=== PATIENT | female | born 2000 | race Caucasian/White ===

== ENCOUNTER 2022-08-27 10:28 | Emergency (ER) | payer SELFPAY ==
[2022-08-27 10:36] VITALS: BP 127/79; PULSE 83; RESP 16; TEMP 36.9; O2SAT 99; BMI 38.3
[2022-08-27 11:49] LABS: Basophils % 0.2 %; Eosinophils % 0.1 %; Hematocrit 40.2 % (37.0-47.0); Hemoglobin 13.1 g/dL (11.5-15.3); Lymphocytes # 1.5 10^3/uL (1.5-6.5); Lymphocytes % 11.2 %; Mean Corpuscular HGB Conc 32.6 g/dL (30.0-36.0); Mean Corpuscular Volume 92.2 fl (81-99); Monocytes # 0.6 10^3/uL (0.2-0.9); Monocytes % 4.4 %; Neutrophils # 11.09 10^3/uL (1.8-8.0); Neutrophils % 83.7 %; Nucleated Red Blood Cells % 0 %; Platelet Count 322 10^3/cmm (130-400); Red Blood Count 4.36 10^6/uL (4.1-5.3); Red Cell Distribution Width 12.7 % (12.1-15.1); White Blood Count 13.3 10^3/uL (4.5-13.0)
--- NOTE | 2022-08-27 12:24 | W.ED.ABDPA2 ---
HPI - Abdominal Pain General: Chief Complaint: Abdominal Pain Stated Complaint: cramping, blood in stool, 9 weeks Time Seen by Provider: 08/27/22 10:32 Source: patient Mode of arrival: ambulatory Limitations: no limitations History of Present Illness: Patient is a 21-year-old female at approximately 9 weeks here for complaints of some bright red blood that she noticed in her stool and with wiping earlier today. She's only had one bloody stool and quantified bleeding as a total of 4ml. Patient states she has a longstanding history of a known hiatal hernia. She states she normally takes Prilosec as well as [id number] antacids. She states she will occasionally have pain and did earlier today but denies pain currently. Patient states when she noticed the bright red blood she got concerned that possibly it was secondary to her hiatal hernia and then became concerned in regards to her . Patient is followed by an OB provider out of town. She states she had an ultrasound at roughly 7 weeks which showed a live IUP with activity. Patient has not noticed any constipation or straining with bowel movements. No history of hemorrhoids. She is not having any rectal pain or fullness. Denies urinary symptoms. Patient is not having any vaginal bleeding or pelvic cramping. MD elicited complaint: other (rectal bleeding) Onset (ago): hour(s) Pain Consistency: intermittent Severity: mild Radiation: none Migration to: no migration Exacerbating factors: nothing Relieving factors: nothing Associated Symptoms: Reports hematochezia; Denies change in bowel habits, chills, diarrhea, dysuria, fever(s), melena, nausea and vomiting Related Data: Patient : Yes Review of Systems Const: Denies: fever(s), chills, body aches, fatigue or malaise Card: Denies: chest pain Resp: Denies: dyspnea GI: Reports: abdominal pain (none currently) and hematochezia; Denies: nausea, vomiting, diarrhea, change in bowel habits, pain on defecation, rectal pain, rectal itching, melena or white/light colored stool : Denies: flank pain, dysuria, vaginal odor, vaginal bleeding, vaginal discharge or pelvic pain Musc: Denies: neck pain, back pain, extremity pain or joint pain Neuro: Denies: headache(s), numbness in extremities, weakness in extremities, sensory changes or dizziness Physical Exam Const: COMMON NORMALS: no acute distress, patient oriented x3, no limitations, alert and well nourished GENERAL APPEARANCE: cooperative NUTRITIONAL APPEARANCE: obese ORIENTATION/CONSCIOUSNESS: Yes awake, Yes oriented to person, Yes oriented to place and Yes oriented to time Resp: COMMON NORMALS: normal respiratory effort and clear to auscultation bilaterally AUSCULTATION: clear to auscultation bilaterally Cardio: COMMON NORMALS: regular rate and regular rhythm RATE: regular rate RHYTHM: regular rhythm GI: COMMON NORMALS: Normal to inspection, nondistended, normoactive bowel sounds present, Soft to palpation, non-tender, No hepatosplenomegaly present and no masses INSPECTION: Yes normal to inspection AUSCULTATION: Yes normoactive bowel sounds PALPATION: Yes Soft to palpation, No Tenderness to palpation present (GI) and Yes No hepatosplenomegaly present RECTAL EXAM: visual inspection normal, no fissure noted and no hemorrhoids noted : COMMON NORMALS: Yes no CVA tenderness BLADDER/KIDNEY EXAM: Yes no CVA tenderness Back/Pelvis: COMMON NORMALS: no CVA tenderness Extremity: COMMON NORMALS: normal to inspection GENERAL: Yes normal exam except as noted Neuro: GENNA COMA SCALE: document GCS findings [place] coma scale eye opening: Spontaneous [place] coma scale verbal response: Orientated [place] coma scale motor response: Obey commands [place] coma scale total score: 15 COMMON NORMALS: patient oriented x3, moves all extremities, no focal motor deficits and no sensory deficits noted SENSORIUM/ORIENTATION: Yes alert, Yes oriented to person, Yes oriented to place and Yes oriented to time Skin: COMMON NORMALS: no rashes or lesions noted GENERAL SKIN EXAM: no rashes or lesions noted Course Vital Signs: Vital signs: Vital Signs Temperature 98.4 F 08/27/22 10:36 Pulse Rate 70 08/27/22 13:12 Respiratory Rate 15 08/27/22 13:12 Blood Pressure 118/71 08/27/22 13:13 Pulse Oximetry 99 08/27/22 13:12 Oxygen Delivery Me thod Room Air 08/27/22 13:12 MDM - Abdominal Pain Medical Decision Making Patient here with complaints of one episode of bright red blood per rectum during/after a bowel movement. She had some upper abdominal pain earlier today that has resolved upon arrival to the ED. She states she has this occasionally secondary to her known hiatal hernia/GERD. She states she does normally take medications for this although has not taken them in several days. On exam her abdomen is nontender. Blood work overall is unremarkable. She is not having any vaginal bleeding or cramping. hCG is consistent with dates. There is no need for ultrasound imaging at this time. Discussed keeping stool soft/avoid straining. If bleeding persists I would like her to follow-up with her primary care provider. She can follow-up with OB as scheduled. Return ED precautions given. Lab Data 08/27/22 11:20 08/27/22 11:20 Labs/Radiology: Laboratory Results WBC 13.3 10^3/uL (4.5-13.0) H 08/27/22 11:20 RBC 4.36 10^6/uL (4.1-5.3) 08/27/22 11:20 Hgb 13.1 g/dL (11.5-15.3) 08/27/22 11:20 Hct 40.2 % (37.0-47.0) 08/27/22 11:20 MCV 92.2 fl (81-99) 08/27/22 11:20 MCH 30.0 pg (28.0-34.0) 08/27/22 11:20 MCHC 32.6 g/dL (30.0-36.0) 08/27/22 11:20 RDW 12.7 % (12.1-15.1) 08/27/22 11:20 Plt Count 322 10^3/cmm (130-400) 08/27/22 11:20 MPV 9.0 fL (7.4-10.4) 08/27/22 11:20 Neut % (Auto) 83.7 % 08/27/22 11:20 Lymph % (Auto) 11.2 % 08/27/22 11:20 [place] % (Auto) 4.4 % 08/27/22 11:20 Eos % (Auto) 0.1 % 08/27/22 11:20 Baso % (Auto) 0.2 % 08/27/22 11:20 Neut # (Auto) 11.09 10^3/uL (1.8-8.0) H 08/27/22 11:20 Lymph # (Auto) 1.5 10^3/uL (1.5-6.5) 08/27/22 11:20 [place] # (Auto) 0.6 10^3/uL (0.2-0.9) 08/27/22 11:20 Eos # (Auto) 0.0 10^3/uL (0.0-0.8) 08/27/22 11:20 Baso # (Auto) 0.0 10^3/uL (0.0-0.1) 08/27/22 11:20 Nucleated RBC % (auto) 0 % 08/27/22 11:20 Nucleated RBCs # 0.0 /100WBC 08/27/22 11:20 Sodium 136 mmol/L (136-145) 08/27/22 11:20 Potassium 4.1 mmol/L (3.5-5.1) 08/27/22 11:20 Chloride 102 mmol/L (98-107) 08/27/22 11:20 Carbon Dioxide 21 mmol/L (22-29) L 08/27/22 11:20 Anion Gap 17.1 (5-19) 08/27/22 11:20 BUN 8 mg/dL (6-20) 08/27/22 11:20 Creatinine 0.5 mg/dL (0.5-0.9) 08/27/22 11:20 GFR Calculation 158.9 mL/min (90-130) H 08/27/22 11:20 Glucose 94 mg/dL (65-115) 08/27/22 11:20 Calculated Osmolality 280 mOsm/kg (285-295) L 08/27/22 11:20 Calcium 9.7 mg/dL (8.5-10.5) 08/27/22 11:20 Total Bilirubin 0.2 mg/dL (0.15-1.2) 08/27/22 11:20 AST 13 U/L (0-32) 08/27/22 11:20 ALT 7 U/L (0-33) 08/27/22 11:20 Alkaline Phosphatase 67 U/L (35-105) 08/27/22 11:20 Total Protein 7.7 g/dL (6.6-8.7) 08/27/22 11:20 Albumin 4.0 g/dL (3.5-5.2) 08/27/22 11:20 Globulin 3.7 g/dL (1.3-4.6) 08/27/22 11:20 Ser , Semi-Qnt 26180.00 mIU/mL 08/27/22 11:20 Urine Color Yellow (Yellow) 08/27/22 12:40 Urine Appearance Cloudy (CLEAR) A 08/27/22 12:40 Urine pH 5 (5-7) 08/27/22 12:40 Ur Specific [place] 1.030 (1.005-1.030) 08/27/22 12:40 Urine Protein Neg (Negative) 08/27/22 12:40 Urine Glucose (UA) Norm (Normal) 08/27/22 12:40 Urine Ketones 2+ (Negative) H 08/27/22 12:40 Urine Blood Neg (Negative) 08/27/22 12:40 Urine Nitrate Negative (Negative) 08/27/22 12:40 Urine Bilirubin Neg (Negative) 08/27/22 12:40 Urine Urobilinogen Norm mg/dL (Negative) 08/27/22 12:40 Ur Leukocyte Esterase Trace (Negative) H 08/27/22 12:40 Urine RBC 0-4 /hpf (0-2) H 08/27/22 12:40 Urine WBC 0-4 /hpf (0-5) H 08/27/22 12:40 Ur Squamous Epith Cells 5-10 /hpf (0-5) H 08/27/22 12:40 Amorphous Sediment 3+ /hpf 08/27/22 12:40 Urine Bacteria Trace /hpf (NONE) 08/27/22 12:40 Urine Mucus 1+ /hpf 08/27/22 12:40 Discharge Plan Discharge Patient Disposition: Home Clinical Impression: Bright red blood per rectum, History of hiatal hernia Qualifiers: Weeks of gestation: 9 weeks Qualified Code(s): Z3A.09 - 9 weeks gestation of Condition: Stable Discharge Orders: Discharge ED (Routine); Ordered 08/27/22 Ordered By: Nhi Coulter Activity Restrictions/Additional Instructions: As we discussed you may begin taking a stool softener or MiraLAX to help keep stools soft. Monitor for continued bright red blood from your rectum/stools. You need to follow-up with primary care if this continues. You need to return to the emergency department for severe rectal bleeding or severe pain. Please follow-up with your OB provider as scheduled. Coding Level of Care Code ED Chemical Process Engineer for Gilberto Dawson
[2022-08-27 12:28] LABS: Alanine Aminotransferase 7 U/L (0-33); Alkaline Phosphatase 67 U/L (35-105); Anion Gap 17.1 (5-19); Aspartate Amino Transferase 13 U/L (0-32); Blood Urea Nitrogen 8 mg/dL (6-20); Calcium 9.7 mg/dL (8.5-10.5); Carbon Dioxide 21 mmol/L (22-29); Chloride 102 mmol/L (98-107); Globulin 3.7 g/dL (1.3-4.6); Glomerular Filtration Rate 158.9 mL/min (90-130); Glucose 94 mg/dL (65-115); Osmolality Calculated 280 mOsm/kg (285-295); Potassium 4.1 mmol/L (3.5-5.1); Sodium 136 mmol/L (136-145); Total Bilirubin 0.2 mg/dL (0.15-1.2); Total Protein 7.7 g/dL (6.6-8.7)
[2022-08-27 13:06] LABS: Add Urine Microscopic? YES; Bilirubin Urine Neg (Negative); Blood Urine Neg (Negative); Glucose Urine UA Norm (Normal); Ketones Urine 2+ (Negative); Leukocyte Esterase Urine Trace (Negative); Nitrate Urine Negative (Negative); Protein Urine Neg (Negative); Urine Appearance Cloudy (CLEAR); Urine Color Yellow (Yellow); Urobilinogen Urine Norm (Negative); pH Urine 5 (5-7)
[2022-08-27 13:07] LABS: Add Urine Culture? No; Amorphous Sediment Urine 3+ /hpf; Bacteria Urine TRACE /hpf; Mucus Urine 1+ /hpf; RBC Urine 0-4 /hpf (0-2); WBC Urine 0-4 /hpf (0-5)
[2022-08-27 13:12] VITALS: PULSE 70; RESP 15; O2SAT 99
[2022-08-27 13:13] VITALS: BP 118/71
[2022-08-27 13:40] VITALS: BP 108/78; PULSE 65; O2SAT 99
--- NOTE | 2022-08-30 12:12 | DCPLANNER ---
aerospace project manager called patient due to no primary care physician - no answer at this time.
== END 2022-08-27 13:42 | disposition home or self-care (01) ==
PROVIDERS: Emergency Provider Physician Assistant
DX: O99.611 Diseases of the digestive system complicating pregnancy, first trimester (principal); K92.1 Melena; Z3A.09 9 weeks gestation of pregnancy; K44.9 Diaphragmatic hernia without obstruction or gangrene
CPT/HCPCS: 36415; 80053; 81001; 84702; 85025; 99283

== ENCOUNTER 2022-10-22 01:28 | Emergency (ER) | payer SELFPAY ==
[2022-10-22 01:29] VITALS: BP 91/56; PULSE 93; RESP 16; TEMP 36.7; O2SAT 100; BMI 37.3
--- NOTE | 2022-10-22 01:33 | XRR_ITS ---
PROCEDURE INFORMATION: Exam: XR Chest Exam date and time: 10/22/2022 1:47 AM Age: 22 years old Clinical indication: Shortness of breath; TECHNIQUE: Imaging protocol: Radiologic exam of the chest. Views: 1 view. COMPARISON: No relevant prior studies available. FINDINGS: Lungs: Unremarkable. No consolidation. Pleural spaces: Unremarkable. No pleural effusion. No pneumothorax. Heart/Mediastinum: Unremarkable. No cardiomegaly. Bones/joints: Unremarkable. XR/XR chest 1V portable [id number] IMPRESSION: No acute findings.
--- NOTE | 2022-10-22 01:35 | ED_ITS ---
HPI - Abdominal Pain General: Chief Complaint: Abdominal Pain Stated Complaint: , abd pain Time Seen by Provider: 10/22/22 01:30 Source: patient and EMS Mode of arrival: EMS Limitations: no limitations History of Present Illness: 22-year-old female who is 16 weeks states that 2 hours ago she started having epigastric abdominal pain. She states the pain left upper quadrant and epigastric. She has had gastritis past. She has had obstipation as well at this . She states she did take a stool softener right before the pain started. She denies any lower abdominal pain fevers denies any vaginal bleeding. Associated Symptoms: Denies chills, diarrhea, fever(s), nausea and vomiting Related Data: Date of Last Menstrual Period: 06/17/22 Review of Systems Const: Denies: fever(s), chills, body aches or change in appetite Eyes: Denies: blurry vision or eye discomfort ENMT: Denies: throat pain or dental pain Card: Denies: chest pain Resp: Denies: dyspnea GI: Denies: abdominal pain, nausea, vomiting or diarrhea Musc: Denies: neck pain or back pain Skin/Breast: Denies: rash Neuro: Denies: headache(s) [facility], [facility] ED Female Reproductive History: Date of last menstrual period: 06/17/22 Physical Exam Const: COMMON NORMALS: no acute distress, patient oriented x3 and healthy appearing HENMT: COMMON NORMALS: normocephalic and atraumatic HEAD & SCALP: normocephalic and atraumatic Eye: COMMON NORMALS: EOMs intact bilaterally Neck/C-Spine: COMMON NORMALS: full ROM and supple Chest: COMMONS NORMALS: normal inspection of the chest and normal palpation of entire chest wall Resp: COMMON NORMALS: normal respiratory effort, No retractions, No use of accessory muscles and clear to auscultation bilaterally AUSCULTATION: clear to auscultation bilaterally Cardio: COMMON NORMALS: regular rate, regular rhythm and No murmurs present (Cardio) RATE: regular rate RHYTHM: regular rhythm GI: COMMON NORMALS: Normal to inspection, nondistended, normoactive bowel sounds present, Soft to palpation, non-tender and no masses PALPATION: Yes Soft to palpation Extremity: COMMON NORMALS: normal to inspection and full ROM Neuro: COMMON NORMALS: patient oriented x3, moves all extremities and no focal motor deficits Psych: COMMON NORMALS: mental status grossly normal, Normal thought process present and cooperative THOUGHT PROCESS: Normal thought process present Skin: COMMON NORMALS: no rashes or lesions noted and no wounds GENERAL SKIN EXAM: no rashes or lesions noted Course Vital Signs: Vital signs: Vital Signs Temperature 98.1 F 10/22/22 01:29 Pulse Rate 76 10/22/22 01:54 Respiratory Rate 16 10/22/22 01:54 Blood Pressure 103/70 10/22/22 01:54 Pulse Oximetry 98 10/22/22 01:54 Oxygen Delivery Me thod Room Air 10/22/22 01:29 MDM - Abdominal Pain Medical Decision Making Patient presents here with abdominal pain epigastric in nature likely reflux her pain is much improved here. Blood work is normal. She has no lower abdominal pain heart tones are normal she is stable for discharge she follows up with her OB on Friday she is return if worsening. Medical Records I reviewed the patient's medical records. Lab Data I reviewed the patient's lab results. 10/22/22 01:42 10/22/22 01:42 Labs/Radiology: Radiology Impressions Chest X-Ray 10/22/22 01:33 IMPRESSION: No acute findings. Laboratory Results WBC 12.5 10^3/uL (4.5-13.0) 10/22/22 01:42 RBC 3.91 10^6/uL (4.1-5.3) L 10/22/22 01:42 Hgb 11.8 g/dL (11.5-15.3) 10/22/22 01:42 Hct 35.0 % (37.0-47.0) L 10/22/22 01:42 MCV 89.5 fl (81-99) 10/22/22 01:42 MCH 30.2 pg (28.0-34.0) 10/22/22 01:42 MCHC 33.7 g/dL (30.0-36.0) 10/22/22 01:42 RDW 13.1 % (12.1-15.1) 10/22/22 01:42 Plt Count 258 10^3/cmm (130-400) 10/22/22 01:42 MPV 8.9 fL (7.4-10.4) 10/22/22 01:42 Neut % (Auto) 70.0 % 10/22/22 01:42 Lymph % (Auto) 21.8 % 10/22/22 01:42 [place] % (Auto) 6.3 % 10/22/22 01:42 Eos % (Auto) 1.2 % 10/22/22 01:42 Baso % (Auto) 0.3 % 10/22/22 01:42 Neut # (Auto) 8.73 10^3/uL (1.8-8.0) H 10/22/22 01:42 Lymph # (Auto) 2.7 10^3/uL (1.5-6.5) 10/22/22 01:42 [place] # (Auto) 0.8 10^3/uL (0.2-0.9) 10/22/22 01:42 Eos # (Auto) 0.2 10^3/uL (0.0-0.8) 10/22/22 01:42 Baso # (Auto) 0.0 10^3/uL (0.0-0.1) 10/22/22 01:42 Nucleated RBC % (auto) 0 % 10/22/22 01:42 Nucleated RBCs # 0.0 /100WBC 10/22/22 01:42 Sodium 137 mmol/L (136-145) 10/22/22 01:42 Potassium 3.8 mmol/L (3.5-5.1) 10/22/22 01:42 Chloride 104 mmol/L (98-107) 10/22/22 01:42 Carbon Dioxide 22 mmol/L (22-29) 10/22/22 01:42 Anion Gap 14.8 (5-19) 10/22/22 01:42 BUN 8 mg/dL (6-20) 10/22/22 01:42 Creatinine 0.6 mg/dL (0.5-0.9) 10/22/22 01:42 GFR Calculation 127.5 mL/min (90-130) 10/22/22 01:42 Glucose 97 mg/dL (65-115) 10/22/22 01:42 Calculated Osmolality 282 mOsm/kg (285-295) L 10/22/22 01:42 Calcium 9.3 mg/dL (8.5-10.5) 10/22/22 01:42 Total Bilirubin 0.2 mg/dL (0.15-1.2) 10/22/22 01:42 AST 12 U/L (0-32) 10/22/22 01:42 ALT < 5 U/L (0-33) 10/22/22 01:42 Alkaline Phosphatase 54 U/L (35-105) 10/22/22 01:42 Total Protein 7.2 g/dL (6.6-8.7) 10/22/22 01:42 Albumin 3.9 g/dL (3.5-5.2) 10/22/22 01:42 Globulin 3.3 g/dL (1.3-4.6) 10/22/22 01:42 Lipase 22 U/L (13-60) 10/22/22 01:42 Urine Color Light yellow (Yellow) 10/22/22 01:59 Urine Appearance Hazy (CLEAR) A 10/22/22 01:59 Urine pH 6 (5-7) 10/22/22 01:59 Ur Specific [place] 1.020 (1.005-1.030) 10/22/22 01:59 Urine Protein Neg (Negative) 10/22/22 01:59 Urine Glucose (UA) Norm (Normal) 10/22/22 01:59 Urine Ketones 2+ (Negative) H 10/22/22 01:59 Urine Blood Neg (Negative) 10/22/22 01:59 Urine Nitrate Negative (Negative) 10/22/22 01:59 Urine Bilirubin Neg (Negative) 10/22/22 01:59 Urine Urobilinogen Norm mg/dL (Negative) 10/22/22 01:59 Ur Leukocyte Esterase 2+ (Negative) H 10/22/22 01:59 Urine RBC None /hpf (0-2) 10/22/22 01:59 Urine WBC 5-10 /hpf (0-5) H 10/22/22 01:59 Ur Squamous Epith Cells 10-15 /hpf (0-5) H 10/22/22 01:59 Amorphous Sediment Not Reportable 10/22/22 01:59 Urine Bacteria 1+ /hpf (NONE) H 10/22/22 01:59 Discharge Plan Discharge Patient Disposition: Home Clinical Impression: UTI (urinary tract infection), Abdominal pain Condition: Stable Prescriptions: New cephalexin 500 mg capsule 500 mg PO TID 7 Days Qty: 21 0RF No Action ondansetron 8 mg tablet,disintegrating Vitamin Plus Low Iron 27 mg iron- 1 mg tablet Discharge Orders: Discharge ED (Routine); Ordered 10/22/22 Ordered By: Merle Henry Discharge Diet: Advance as tolerated Discharge Activity: Resume usual activity Patient Instructions: Abdominal Pain (ED), Urinary Tract Infection in (ED) Coding Level of Care Code ED Sexton Helper for Gilberto Dawson
[2022-10-22] MEDS: ondansetron 2 mg/ML SDV 2 mL 4 MG IVP (01:49)
[2022-10-22] MEDS: aluminum-mag hydrox-simethicon 30 ML, sucralfate oral liq 1 GM PO (01:49)
[2022-10-22 01:50] VITALS: RESP 16
[2022-10-22] MEDS: morphine 4 mg/mL SDV 1 mL IVP (01:50)
[2022-10-22 01:54] VITALS: BP 103/70; PULSE 76; RESP 16; O2SAT 98
[2022-10-22 01:55] LABS: Basophils % 0.3 %; Eosinophils # 0.2 10^3/uL (0.0-0.8); Eosinophils % 1.2 %; Hemoglobin 11.8 g/dL (11.5-15.3); Lymphocytes # 2.7 10^3/uL (1.5-6.5); Lymphocytes % 21.8 %; Mean Corpuscular HGB Conc 33.7 g/dL (30.0-36.0); Mean Corpuscular Hemoglobin 30.2 pg (28.0-34.0); Mean Corpuscular Volume 89.5 fl (81-99); Mean Platelet Volume 8.9 fL (7.4-10.4); Monocytes # 0.8 10^3/uL (0.2-0.9); Monocytes % 6.3 %; Neutrophils # 8.73 10^3/uL (1.8-8.0); Nucleated Red Blood Cells % 0 %; Platelet Count 258 10^3/cmm (130-400); Red Blood Count 3.91 10^6/uL (4.1-5.3); Red Cell Distribution Width 13.1 % (12.1-15.1); White Blood Count 12.5 10^3/uL (4.5-13.0)
[2022-10-22 02:20] LABS: Add Urine Microscopic? YES; Bilirubin Urine Neg (Negative); Blood Urine Neg (Negative); Glucose Urine UA Norm (Normal); Ketones Urine 2+ (Negative); Leukocyte Esterase Urine 2+ (Negative); Nitrate Urine Negative (Negative); Protein Urine Neg (Negative); Urine Appearance Hazy (CLEAR); Urine Color Light yellow (Yellow); Urobilinogen Urine Norm (Negative); pH Urine 6 (5-7)
[2022-10-22 02:21] LABS: Add Urine Culture? No; Bacteria Urine 1+ /hpf
[2022-10-22 02:29] LABS: Alanine Aminotransferase < 5 U/L (0-33); Albumin Level 3.9 g/dL (3.5-5.2); Alkaline Phosphatase 54 U/L (35-105); Anion Gap 14.8 (5-19); Aspartate Amino Transferase 12 U/L (0-32); Blood Urea Nitrogen 8 mg/dL (6-20); Calcium 9.3 mg/dL (8.5-10.5); Carbon Dioxide 22 mmol/L (22-29); Chloride 104 mmol/L (98-107); Globulin 3.3 g/dL (1.3-4.6); Glomerular Filtration Rate 127.5 mL/min (90-130); Glucose 97 mg/dL (65-115); Lipase 22 U/L (13-60); Osmolality Calculated 282 mOsm/kg (285-295); Potassium 3.8 mmol/L (3.5-5.1); Sodium 137 mmol/L (136-145); Total Bilirubin 0.2 mg/dL (0.15-1.2); Total Protein 7.2 g/dL (6.6-8.7)
[2022-10-22 02:40] VITALS: BP 105/66; PULSE 72; RESP 16; O2SAT 98
[2022-10-22] MEDS: cephALEXin 500 mg Capsule PO (02:41)
== END 2022-10-22 02:46 | disposition home or self-care (01) ==
PROVIDERS: Emergency Provider Emergency Medicine
DX: O23.42 Unspecified infection of urinary tract in pregnancy, second trimester (principal); N39.0 Urinary tract infection, site not specified; Z3A.16 16 weeks gestation of pregnancy
CPT/HCPCS: 71045; 80053; 81001; 83690; 85025; 96374; 96375; 99284; J2270; J2405

== ENCOUNTER 2022-11-30 18:51 | Outpatient (CLI) | payer MEDICAID, SELFPAY ==
[2022-11-30] VITALS (8 sets, daily range): BP systolic 102–121; BP diastolic 56–73; PULSE 80–97; RESP 16; TEMP 35.9; BMI 38.3
[2022-11-30 19:49] LABS: Bilirubin Urine Neg (Negative); Blood Urine Neg (Negative); Glucose Urine UA Norm (Normal); Ketones Urine Negative (Negative); Leukocyte Esterase Urine Negative (Negative); Nitrate Urine Negative (Negative); Protein Urine Neg (Negative); Urine Appearance Clear (CLEAR); Urine Color Yellow (Yellow); Urobilinogen Urine Neg (Negative); pH Urine 7 (5-7)
[2022-11-30 20:19] LABS: RBC Urine RARE /hpf (0-2)
[2022-11-30 20:20] LABS: Add Urine Culture? No; Amorphous Sediment Urine 2+ /hpf; Squamous Epithelial Cell Urine 15-25 /hpf (0-5)
== END 2022-11-30 20:30 | disposition home or self-care (01) ==
LOC: OPOB 18:55 → OBGYN 18:55
PROVIDERS: Visit Provider Family Medicine
DX: O26.899 Other specified pregnancy related conditions, unspecified trimester (principal); Z3A.00 Weeks of gestation of pregnancy not specified; R10.9 Unspecified abdominal pain
CPT/HCPCS: 81001; 99211

== ENCOUNTER 2023-01-12 13:31 | Outpatient (CLI) | payer MEDICAID, SELFPAY ==
[2023-01-12 13:23] VITALS: BMI 39.9
[2023-01-12 13:49] VITALS: BP 111/66; PULSE 102
[2023-01-12 14:07] VITALS: BP 115/71; PULSE 98
[2023-01-12 14:15] LABS: Nitrazine Paper, PH Negative
== END 2023-01-12 14:13 | disposition home or self-care (01) ==
LOC: OPOB 13:32 → OBGYN 13:33
PROVIDERS: Visit Provider Family Medicine
DX: O26.899 Other specified pregnancy related conditions, unspecified trimester (principal); Z3A.00 Weeks of gestation of pregnancy not specified; N89.8 Other specified noninflammatory disorders of vagina
CPT/HCPCS: 59025; 83986; 99211

== ENCOUNTER 2023-01-22 07:22 | Outpatient (CLI) | payer MEDICAID, SELFPAY ==
[2023-01-22 07:34] VITALS: RESP 16
[2023-01-22 07:37] VITALS: BP 113/73; PULSE 73
[2023-01-22 07:42] VITALS: BMI 40.4
[2023-01-22 07:52] VITALS: BP 103/64; PULSE 74
[2023-01-22 08:07] VITALS: BP 101/62; PULSE 73
== END 2023-01-22 08:12 | disposition home or self-care (01) ==
LOC: OPOB 07:23 → OBGYN 07:24
PROVIDERS: Visit Provider Family Medicine
DX: O26.899 Other specified pregnancy related conditions, unspecified trimester (principal); Z3A.00 Weeks of gestation of pregnancy not specified; R10.9 Unspecified abdominal pain
CPT/HCPCS: 59025; 99211

== ENCOUNTER 2023-02-02 19:10 | Outpatient (CLI) | payer MEDICAID, SELFPAY ==
[2023-02-02] VITALS (9 sets, daily range): BP systolic 101–107; BP diastolic 63–76; PULSE 85–100; RESP 17; TEMP 35.8; BMI 40.4
[2023-02-02 20:26] LABS: Bacteria Urine 1+ /hpf; Bilirubin Urine Neg (Negative); Blood Urine 3+ (Negative); Glucose Urine UA 1+ (Normal); Ketones Urine 1+ (Negative); Leukocyte Esterase Urine 2+ (Negative); Nitrate Urine Positive (Negative); Protein Urine 1+ (Negative); RBC Urine >100 /hpf (0-2); Specific Gravity, Urine 1.025 (1.005-1.030); Urine Appearance Cloudy (CLEAR); Urine Color Yellow (Yellow); Urobilinogen Urine Neg (Negative); WBC Urine >100 /hpf (0-5); pH Urine 5 (5-7)
[2023-02-02 20:27] LABS: Add Urine Culture? No; Squamous Epithelial Cell Urine TOO NUMEROUS TO CNT /hpf (0-5)
== END 2023-02-02 21:00 | disposition home or self-care (01) ==
LOC: OPOB 19:12 → OBGYN 19:12
PROVIDERS: Visit Provider Family Medicine
DX: O46.90 Antepartum hemorrhage, unspecified, unspecified trimester (principal); Z3A.00 Weeks of gestation of pregnancy not specified; R10.9 Unspecified abdominal pain
CPT/HCPCS: 59025; 81001; 99211

== ENCOUNTER 2023-03-24 08:20 | Outpatient (CLI) | payer MEDICAID, SELFPAY ==
[2023-03-24] VITALS (8 sets, daily range): BP systolic 98–110; BP diastolic 59–69; PULSE 68–79; RESP 16; BMI 42.2
== END 2023-03-24 11:25 | disposition home or self-care (01) ==
LOC: OPOB 08:20 → OBGYN 08:39
PROVIDERS: PCP Family Medicine; Visit Provider Family Medicine
DX: O26.899 Other specified pregnancy related conditions, unspecified trimester (principal); Z3A.00 Weeks of gestation of pregnancy not specified; R10.9 Unspecified abdominal pain
CPT/HCPCS: 59025; 99211

== ENCOUNTER 2023-03-25 01:12 | Outpatient (CLI) | payer MEDICAID, SELFPAY ==
[2023-03-25 01:12] VITALS: BMI 42.8
[2023-03-25 01:19] VITALS: BP 116/73; PULSE 95
[2023-03-25 01:34] VITALS: BP 115/65; PULSE 79
[2023-03-25 01:49] VITALS: BP 112/68; PULSE 70
[2023-03-25 02:09] VITALS: BP 112/68; PULSE 70; RESP 15; TEMP 36.6
== END 2023-03-25 02:10 | disposition home or self-care (01) ==
LOC: OPOB 01:12 → OBGYN 01:13
PROVIDERS: PCP Family Medicine; Visit Provider Family Medicine
DX: O26.899 Other specified pregnancy related conditions, unspecified trimester (principal); Z3A.00 Weeks of gestation of pregnancy not specified; R10.9 Unspecified abdominal pain
CPT/HCPCS: 59025; 99211

== ENCOUNTER 2023-03-26 01:46 | Inpatient (IN) | payer MEDICAID, SELFPAY ==
[2023-03-25 23:13] VITALS: BMI 42.4
[2023-03-25 23:25] VITALS: BP 140/80; PULSE 99
[2023-03-25 23:37] VITALS: RESP 15
[2023-03-26] VITALS (74 sets, daily range): BP systolic 93–183; BP diastolic 53–132; PULSE 58–214; RESP 14–18; TEMP 35.9–37.3; O2SAT 89–99
[2023-03-26 02:12] LABS: Basophils % 0.3 %; Eosinophils # 0.1 10^3/uL (0.0-0.8); Eosinophils % 0.4 %; Hematocrit 37.3 % (36-47); Lymphocytes # 2.4 10^3/uL (1.5-6.5); Lymphocytes % 21.7 %; Mean Corpuscular HGB Conc 33.8 g/dL (30-55); Mean Corpuscular Hemoglobin 30.8 pg (27-33); Mean Corpuscular Volume 91.2 fl (85-98); Mean Platelet Volume 9.7 fL (7.4-10.4); Monocytes # 0.8 10^3/uL (0.2-0.9); Neutrophils % 70.2 %; Nucleated Red Blood Cells % 0 %; Platelet Count 237 10^3/cmm (157-399); Red Blood Count 4.09 10^6/uL (3.85-5.65); Red Cell Distribution Width 13.2 % (12.1-15.1); White Blood Count 11.12 10^3/uL (4.5-13.0)
[2023-03-26] MEDS: fentaNYL 50 mcg/mL INJ 2mL IVP (03:19)
[2023-03-26] MEDS: lactated ringers 1,000 ML 999 ML IV ×2 (03:30→04:29)
[2023-03-26] MEDS: ondansetron 2 mg/ML SDV 2 mL 4 MG IVP (03:45)
--- NOTE | 2023-03-26 04:36 | ANES.PROC ---
Anesthesia Procedures Procedure/Date: 03/26/23 Epidural: Time Out Performed: Yes Consents Signed: Procedure Consent Consent: requested by attending/covering physician, from patient, risks and benefits reviewed and patient agrees to proceed Lumbar Level: L3-L4 Epidural position: sitting Epidural procedure: sterile prep of area, 1% lidocaine to numb the area, 18 g needle, neg for paresthesia, test dose given, 1.5% xylocaine 1:200k epi (4cc), 0.2% Ropivacaine bolus ml (4cc and fentanyl 100mcg), placed PCEA, no systemic response, sterile dressing applied, L.U.D. no apparent complications and 0.2% Ropiavacaine @ mls/hr (10cc/hour) Additional Comments: ERICA at 7cm. cath placed 2cm into epidural space. Pt tolerated well
[2023-03-26] MEDS: ROPivacaine syringe 100 MG/50 ML SYRINGE 10 MG EPIDURAL (04:47)
[2023-03-26] MEDS: dextrose 5%-lactated ringers 1,000 ML 125 ML IV (05:29)
[2023-03-26] MEDS: calcium carbonate 500 mg Chew Tablet 1000 MG PO (07:36)
[2023-03-26] MEDS: oxytocin 30 UNIT/500 ML BAG 600 UNIT IV (08:05)
--- NOTE | 2023-03-26 08:26 | PM.OPHPUD ---
Labor & Delivery H&P Update Date of Procedure: March 26, 2023 Date H&P Performed: 03/20/23 Admission Diagnosis: IUP at 39 weeks 2 days gestation in active labor Planned procedure: Expectant management of labor and delivery
--- NOTE | 2023-03-26 08:29 | PM.DELIVERY ---
Delivery Note: Date of delivery: March 26, 2023 Procedure: Normal spontaneous vaginal delivery Delivering Physician: Kristen Coleman MD Estimated blood loss (mL): 200 Pre-Delivery Course: The patient had routine care at [facility]. Her blood type was a positive antibody negative, hepatitis B nonreactive, hepatitis C nonreactive, HIV nonreactive, rubella immune, GC chlamydia negative, RPR nonreactive, UDS negative, Q low risk, she passed her glucose tolerance test, she was GBS negative. There were no complications during the . Delivery: This is a 22-year-old G1, P0 at 39 weeks 2 days gestation to labor and delivery in active labor. She received an epidural for pain management. She had spontaneous rupture of membranes with meconium stained fluid. She only had to push through 3 contractions and delivered a viable female weight 3135 g, 6 pounds 15 ounces, Apgars 8 and 9 over an intact perineum. The was suctioned at delivery and placed on the mother's chest. The cord was clamped and cut. The infant was taken to the warmer for more suctioning as she was very gurgly. The placenta was delivered grossly intact and normal to inspection. There was a small first-degree left vaginal laceration that was sutured using 3-0 chromic. Mother and infant were doing well after delivery. Coding Level of Care Code Acute Code for Chg Fwd
[2023-03-26] MEDS: prenatal vitamin Capsule 1 CAP PO (09:45)
[2023-03-26] MEDS: benzocaine-menthol 78 gm Canister 1 SPRAY TOPICAL (09:45)
[2023-03-26] MEDS: ibuprofen 800 mg tablet PO ×2 (09:45→21:04)
[2023-03-26] MEDS: docusate sodium 100 mg Capsule PO (09:45)
[2023-03-26] MEDS: lanolin oint 7 gm 1 APPLIC TOPICAL (09:45)
[2023-03-26] MEDS: acetaminophen 325 mg Tablet 650 MG PO (18:19)
[2023-03-26 21:33] LABS: Hematocrit 31.4 % (36-47); Mean Corpuscular HGB Conc 33.4 g/dL (30-55); Mean Corpuscular Hemoglobin 30.8 pg (27-33); Mean Corpuscular Volume 92.1 fl (85-98); Mean Platelet Volume 10.1 fL (7.4-10.4); Platelet Count 185 10^3/cmm (157-399); Red Blood Count 3.41 10^6/uL (3.85-5.65); Red Cell Distribution Width 13.3 % (12.1-15.1); White Blood Count 13.62 10^3/uL (4.5-13.0)
[2023-03-27] MEDS: acetaminophen 325 mg Tablet 650 MG PO ×2 (01:46→13:01)
[2023-03-27 06:17] VITALS: BP 104/60; PULSE 70; RESP 18; O2SAT 98
[2023-03-27] MEDS: docusate sodium 100 mg Capsule PO (08:31)
[2023-03-27] MEDS: prenatal vitamin Capsule 1 CAP PO (08:31)
[2023-03-27] MEDS: ibuprofen 800 mg tablet PO (08:31)
[2023-03-27 09:30] VITALS: BP 107/67; PULSE 86; RESP 17; TEMP 36.8; O2SAT 96
--- NOTE | 2023-03-27 11:00 | ANE.PACU2 ---
Inpatient post-anesthesia follow up: Airway intact: Yes Vital signs: Temperature 98.0 F Pulse Rate 70 Respiratory Rate 18 Blood Pressure 104/60 Pulse Oximetry 98 Oxygen Delivery Me thod Room Air Oxygen Flow Rate Fraction of Inspir ed Oxygen Hydration adequate: Yes Nausea and vomiting: No Pain level: 2 Mental status: Baseline Epidural Start/End: Epidural Start Date: 03/26/23 Epidural Start Time: 04:06 Epidural End Date: 03/26/23 Epidural End Time: 08:29
--- NOTE | 2023-03-27 12:52 | P.DS_ITS ---
Discharge Providers Date of Admission: 03/26/23 01:46 Date of Discharge: March 27, 2023 Attending Provider at Admission: Kristen Coleman MD Attending Provider at Discharge: Kristen Coleman MD Primary Care Provider: Kristen Coleman MD Reason for Visit Reason for Visit: CONTRACTIONS Hospital Course Hospital Course This is a 22-year-old G1 now P1 who was admitted in active labor at 39 weeks 2 days gestation. She had a normal spontaneous vaginal delivery of a viable female infant. Mother and infant have done well . Mother says she has average vaginal bleeding. She does not have any complaints. She is comfortable with discharge home. Physical Exam Narrative: Alert and oriented, sitting up in bed pumping, heart regular rate and rhythm, lungs clear to auscultation bilaterally, abdomen is soft and nontender, fundus is firm, extremities have edema but no calf tenderness. Urinary Catheter Management: Perales: Cath Placed During This Visit: yes, but has since been removed by the nurse Reason for Continuing Indwelling Catheter: Decision to DC Catheter Urinary Catheter Date of Insertion: 03/26/23 Urinary Catheter Time of Insertion: 05:18 Date Urinary Catheter Removed: 03/26/23 Time Urinary Catheter Discontinued: 07:45 Discharge Data Studies Completed and Pending Laboratory Results WBC 13.62 10^3/uL (4.5-13.0) H 03/26/23 21:20 RBC 3.41 10^6/uL (3.85-5.65) L 03/26/23 21:20 Hgb 10.50 g/dL (12.4-14.8) L 03/26/23 21:20 Hct 31.4 % (36-47) L 03/26/23 21:20 MCV 92.1 fl (85-98) 03/26/23 21:20 MCH 30.8 pg (27-33) 03/26/23 21:20 MCHC 33.4 g/dL (30-55) 03/26/23 21:20 RDW 13.3 % (12.1-15.1) 03/26/23 21:20 Plt Count 185 10^3/cmm (157-399) 03/26/23 21:20 MPV 10.1 fL (7.4-10.4) 03/26/23 21:20 Neut % (Auto) 70.2 % 03/26/23 02:00 Lymph % (Auto) 21.7 % 03/26/23 02:00 [place] % (Auto) 7.0 % 03/26/23 02:00 Eos % (Auto) 0.4 % 03/26/23 02:00 Baso % (Auto) 0.3 % 03/26/23 02:00 Neut # (Auto) 7.80 10^3/uL (1.8-8.0) 03/26/23 02:00 Lymph # (Auto) 2.4 10^3/uL (1.5-6.5) 03/26/23 02:00 [place] # (Auto) 0.8 10^3/uL (0.2-0.9) 03/26/23 02:00 Eos # (Auto) 0.1 10^3/uL (0.0-0.8) 03/26/23 02:00 Baso # (Auto) 0.0 10^3/uL (0.0-0.1) 03/26/23 02:00 Nucleated RBC % (auto) 0 % 03/26/23 02:00 Nucleated RBCs # 0.0 /100WBC 03/26/23 02:00 Blood Type A Positive 03/26/23 02:00 Rho(D) Type Rh positive 03/26/23 02:00 Antibody Screen Negative 03/26/23 02:00 Vitals Last Vital Signs Temp 98.0 F 03/26/23 18:00 Pulse 70 03/27/23 06:17 Resp 18 03/27/23 06:17 BP 104/60 03/27/23 06:17 Pulse Ox 98 03/27/23 06:17 O2 Del Method Room Air 03/26/23 21:00 Discharge Plan Discharge Patient Disposition: Home Condition: Stable Prescriptions: Continued Vitamin Plus Low Iron 27 mg iron- 1 mg tablet 1 tab PO DAILY Discharge Orders: Discharge Order (Routine); Ordered 03/27/23 Ordered By: Kristen Coleman Referrals: Kristen Coleman MD [Primary Care Provider] - 1 month Discharge Diet: Usual diet Discharge Activity: Limit activity as instructed Patient Instructions: Opioid Safety Discharge Attestations Time Spent in Discharge Care*: less than 30 min Quality Metrics Clinical Quality Measures [ No reported AMI, CVA or VTE this stay] Coding Level of Care Code Acute Code for Chg Fwd
[2023-03-27 15:53] VITALS: BP 113/70; PULSE 88; RESP 17; TEMP 36.6; O2SAT 97
[2023-03-27 16:30] VITALS: BP 113/70; PULSE 88; RESP 17; TEMP 36.6; O2SAT 97
== END 2023-03-27 16:30 | disposition home or self-care (01) | DRG 807 ==
LOC: OPOB 07:39 → OBGYN 07:40
PROVIDERS: Admitting Provider Family Medicine; PCP Family Medicine; Visit Provider Family Medicine
DX: O77.0 Labor and delivery complicated by meconium in amniotic fluid (principal); Z37.0 Single live birth; Z3A.39 39 weeks gestation of pregnancy; O70.0 First degree perineal laceration during delivery
CPT/HCPCS: 36415; 51702; 59025; 59409; 85025; 85027; 86850; 86900; 96374; 96376; 98960; 99211; J2405; J2590; J2795; J3010; J7120; J7121

== ENCOUNTER 2023-05-06 14:44 | Emergency (ER) | payer MEDICAID, SELFPAY ==
[2023-05-06 15:16] VITALS: BP 116/75; PULSE 86; RESP 12; TEMP 36.6; O2SAT 98; BMI 38.7
[2023-05-06 15:39] LABS: Basophils % 0.3 %; Eosinophils # 0.1 10^3/uL (0.0-0.8); Hematocrit 42.4 % (36-47); Lymphocytes % 28.5 %; Mean Corpuscular Hemoglobin 29.9 pg (27-33); Mean Corpuscular Volume 90.6 fl (85-98); Mean Platelet Volume 8.9 fL (7.4-10.4); Monocytes # 0.7 10^3/uL (0.2-0.9); Monocytes % 10.2 %; Neutrophils # 4.04 10^3/uL (1.8-8.0); Neutrophils % 58.9 %; Nucleated Red Blood Cells % 0 %; Platelet Count 301 10^3/cmm (157-399); Red Blood Count 4.68 10^6/uL (3.85-5.65); Red Cell Distribution Width 12.5 % (12.1-15.1); White Blood Count 6.87 10^3/uL (4.5-13.0)
[2023-05-06 15:51] LABS: HCG, Serum Qual Negative (Negative)
[2023-05-06 16:00] LABS: Alanine Aminotransferase 14 U/L (0-33); Albumin Level 4.4 g/dL (3.5-5.2); Alkaline Phosphatase 100 U/L (35-105); Anion Gap 14.3 (5-19); Aspartate Amino Transferase 17 U/L (0-32); Blood Urea Nitrogen 13 mg/dL (6-20); Calcium 9.6 mg/dL (8.5-10.5); Carbon Dioxide 25 mmol/L (22-29); Chloride 102 mmol/L (98-107); Globulin 3.8 g/dL (1.3-4.6); Glomerular Filtration Rate 127.5 mL/min (90-130); Glucose 95 mg/dL (65-115); Lipase 24 U/L (13-60); Osmolality Calculated 284 mOsm/kg (285-295); Potassium 4.3 mmol/L (3.5-5.1); Sodium 137 mmol/L (136-145); Total Bilirubin 0.2 mg/dL (0.15-1.2); Total Protein 8.2 g/dL (6.6-8.7)
--- NOTE | 2023-05-06 16:54 | USR_ITS ---
PROCEDURE INFORMATION: Exam: US Abdomen, Limited; Right Upper Quadrant Exam date and time: 05/06/2023 5:12 PM Age: 22 years old Clinical indication: Abdominal pain; Epigastric; Additional info: Ruq pain TECHNIQUE: Imaging protocol: Real time ultrasound of the abdomen with image documentation. Limited exam focused on the right upper quadrant. COMPARISON: [place] [id number] 01/23/2023 8:33 AM FINDINGS: Liver: Normal. No masses. Liver span is 16 cm Gallbladder: Multiple mobile shadowing gallstones. There is no gallbladder wall thickening. Biliary ducts: Normal. No stones. No dilation. CBD 2 mm Pancreas: Visualized pancreas is unremarkable. Right kidney: There is a stone in the proximal renal pelvis 1.3 cm x 0.7 cm x 0.5 cm The right kidney measures 3.6 cm x 4 cm x 10 cm No mass. No hydronephrosis. US/US gall bladder [id number] IMPRESSION: 1. Calcified stone right kidney 2. Multiple mobile shadowing gallstones 3 otherwise negative examination of the abdomen of are
--- NOTE | 2023-05-06 16:55 | W.ED.ABDPA2 ---
HPI - Abdominal Pain General: Chief Complaint: Abdominal Pain Stated Complaint: abd pain Time Seen by Provider: 05/06/23 16:50 Source: patient Mode of arrival: ambulatory Limitations: no limitations History of Present Illness: 22-year-old female who had a spontaneous vaginal delivery 6 weeks ago she states she has been having intermittent epigastric abdominal pain for 5 to 6 months. She had a history of gastritis along with hiatal hernia states she has had increasing pain over the last 2 weeks states pain is currently a 2 out of 10 states her PCP is concern for possible pancreatitis. She had no abdominal surgeries in the past. She states she has been on antacids in the past she had some nausea denies any vomiting denies any diarrhea. Associated Symptoms: Denies chills, diarrhea, dysuria, fever(s), nausea and vomiting Review of Systems Const: Denies: fever(s) or chills ENMT: Denies: throat pain or dental pain Card: Denies: chest pain Resp: Denies: dyspnea GI: Reports: abdominal pain; Denies: nausea, vomiting or diarrhea : Denies: dysuria Musc: Denies: neck pain or back pain Skin/Breast: Denies: rash Neuro: Denies: headache(s) Physical Exam Const: COMMON NORMALS: no acute distress, patient oriented x3 and healthy appearing HENMT: COMMON NORMALS: normocephalic and atraumatic HEAD & SCALP: normocephalic and atraumatic Neck/C-Spine: COMMON NORMALS: full ROM and supple Chest: COMMONS NORMALS: normal inspection of the chest Resp: COMMON NORMALS: normal respiratory effort Cardio: COMMON NORMALS: regular rate, regular rhythm and No murmurs present (Cardio) RATE: regular rate RHYTHM: regular rhythm GI: COMMON NORMALS: Normal to inspection, nondistended, normoactive bowel sounds present, Soft to palpation, non-tender and no masses PALPATION: Yes Soft to palpation Extremity: COMMON NORMALS: normal to inspection and full ROM Neuro: COMMON NORMALS: patient oriented x3, moves all extremities and no focal motor deficits Psych: COMMON NORMALS: mental status grossly normal, Normal thought process present and cooperative THOUGHT PROCESS: Normal thought process present Skin: COMMON NORMALS: no rashes or lesions noted and no wounds GENERAL SKIN EXAM: no rashes or lesions noted Course Vital Signs: Vital signs: Vital Signs Temperature 97.9 F 05/06/23 15:16 Pulse Rate 75 05/06/23 17:01 Respiratory Rate 12 05/06/23 15:16 Blood Pressure 111/62 05/06/23 17:01 Pulse Oximetry 97 05/06/23 17:01 Oxygen Delivery Me thod Room Air 05/06/23 17:01 MDM - Abdominal Pain Medical Decision Making Intermittent abdominal pain for months she does have gallstones her pain could be biliary colic she has no signs of cholecystitis her abdominal exam here is benign we will place her on pain meds nausea medicine and get her follow-up with surgery she is return if worsening she understands agrees to plan. Medical Records I reviewed the patient's medical records. Lab Data I reviewed the patient's lab results. 05/06/23 15:25 05/06/23 15:25 Labs/Radiology: Radiology Impressions Gallbladder Ultrasound 05/06/23 16:54 IMPRESSION: 1. Calcified stone right kidney 2. Multiple mobile shadowing gallstones 3 otherwise negative examination of the abdomen of are Laboratory Results WBC 6.87 10^3/uL (4.5-13.0) 05/06/23 15:25 RBC 4.68 10^6/uL (3.85-5.65) 05/06/23 15:25 Hgb 14.00 g/dL (12.4-14.8) 05/06/23 15: Hct 42.4 % (36-47) 05/06/23 15:25 MCV 90.6 fl (85-98) 05/06/23 15: MCH 29.9 pg (27-33) 05/06/23 15: MCHC 33.0 g/dL (30-55) 05/06/23 15:25 RDW 12.5 % (12.1-15.1) 05/06/23 15:25 Plt Count 301 10^3/cmm (157-399) 05/06/23 15: MPV 8.9 fL (7.4-10.4) 05/06/23 15:25 Neut % (Auto) 58.9 % 05/06/23 15: Lymph % (Auto) 28.5 % 05/06/23 15: [place] % (Auto) 10.2 % 05/06/23 15: Eos % (Auto) 2.0 % 05/06/23 15:25 Baso % (Auto) 0.3 % 05/06/23 15:25 Neut # (Auto) 4.04 10^3/uL (1.8-8.0) 05/06/23 15:25 Lymph # (Auto) 2.0 10^3/uL (1.5-6.5) 05/06/23 15:25 [place] # (Auto) 0.7 10^3/uL (0.2-0.9) 05/06/23 15: Eos # (Auto) 0.1 10^3/uL (0.0-0.8) 05/06/23 15: Baso # (Auto) 0.0 10^3/uL (0.0-0.1) 05/06/23 15: Nucleated RBC % (auto) 0 % 05/06/23: Nucleated RBCs # 0.0 /100WBC 05/06/23 15:25 Sodium 137 mmol/L (136-145) 05/06/23 15:25 Potassium 4.3 mmol/L (3.5-5.1) 05/06/23 15:25 Chloride 102 mmol/L (98-107) 05/06/23 15:25 Carbon Dioxide 25 mmol/L (22-29) 05/06/23 15:25 Anion Gap 14.3 (5-19) 05/06/23 15:25 BUN 13 mg/dL (6-20) 05/06/23 15:25 Creatinine 0.6 mg/dL (0.5-0.9) 05/06/23 15:25 GFR Calculation 127.5 mL/min (90-130) 05/06/23 15:25 Glucose 95 mg/dL (65-115) 05/06/23 15:25 Calculated Osmolality 284 mOsm/kg (285-295) L 05/06/23 15:25 Calcium 9.6 mg/dL (8.5-10.5) 05/06/23 15:25 Total Bilirubin 0.2 mg/dL (0.15-1.2) 05/06/23 15:25 AST 17 U/L (0-32) 05/06/23 15:25 ALT 14 U/L (0-33) 05/06/23 15:25 Alkaline Phosphatase 100 U/L (35-105) 05/06/23 15:25 Total Protein 8.2 g/dL (6.6-8.7) 05/06/23 15:25 Albumin 4.4 g/dL (3.5-5.2) 05/06/23 15:25 Globulin 3.8 g/dL (1.3-4.6) 05/06/23 15:25 Lipase 24 U/L (13-60) 05/06/23 15:25 HCG, Qual Negative (Negative) 05/06/23 15:25 All radiology interpretation(s) finalized by discharge Discharge Plan Discharge Patient Disposition: Home Clinical Impression: Abdominal pain Qualifiers: Abdominal location: generalized Qualified Code(s): R10.84 - Generalized abdominal pain Cholelithiasis Qualifiers: Cholelithiasis location: gallbladder Cholecystitis presence: without cholecystitis Biliary obstruction: without biliary obstruction Qualified Code(s): K80.20 - Calculus of gallbladder without cholecystitis without obstruction Condition: Stable Prescriptions: New hydrocodone-acetaminophen 5-325 mg tablet 1 tab PO Q6H PRN (Reason: pain) Qty: 14 0RF ondansetron 4 mg tablet,disintegrating 4 mg PO Q6H PRN (Reason: nausea and vomiting) Qty: 14 0RF No Action Vitamin Plus Low Iron 27 mg iron- 1 mg tablet 1 tab PO DAILY Discharge Orders: Discharge ED (Routine); Ordered 05/06/23 Ordered By: Merle Henry Referrals: Kristen Coleman MD [Primary Care Provider] - Marquez Turpin DO [Physician] - 1-3 days Discharge Diet: Advance as tolerated Discharge Activity: Resume usual activity Patient Instructions: Gallstones (ED), Abdominal Pain (ED), Opioid Safety Coding Level of Care Code ED Aquatic Physiotherapist for Chg Samir
[2023-05-06 17:01] VITALS: BP 111/62; PULSE 75; O2SAT 97
[2023-05-06] MEDS: ondansetron 4 MG Tablet PO (17:01)
[2023-05-06 17:30] VITALS: BP 115/72; PULSE 79; O2SAT 95
[2023-05-06 18:07] VITALS: BP 117/92; PULSE 87; O2SAT 98
--- NOTE | 2023-05-07 09:11 | DCPLANNER ---
Message sent to General Surgery - Cholelithiasis
== END 2023-05-06 18:08 | disposition home or self-care (01) ==
PROVIDERS: Emergency Provider Emergency Medicine; PCP Family Medicine
DX: R10.84 Generalized abdominal pain (principal); K80.20 Calculus of gallbladder without cholecystitis without obstruction
CPT/HCPCS: 36415; 76705; 80053; 83690; 84703; 85025; 99284; Q0162

== ENCOUNTER → 2023-05-16 15:28 | Outpatient (BNVA) | payer MEDICAID, SELFPAY | PROVIDERS: PCP Family Medicine; Visit Provider Nurse Practitioner Family | DX: R05.9 Cough, unspecified (principal) | CPT/HCPCS: 87400; 87426 ==

== ENCOUNTER 2023-05-23 21:24 | Emergency (ER) | payer MEDICAID, SELFPAY ==
[2023-05-23 21:34] VITALS: BP 114/63; PULSE 133; RESP 158; TEMP 38.1; O2SAT 96; BMI 38.3
--- NOTE | 2023-05-23 22:26 | W.ED.ABDPA2 ---
Documented by User: CORKY Pugh 05/24/23 00:12 HPI - Abdominal Pain General: Chief Complaint: Abdominal Pain Stated Complaint: Gall Stones? Pain Time Seen by Provider: 05/23/23 21:48 Source: patient Mode of arrival: ambulatory Limitations: no limitations History of Present Illness: Patient is a 22-year-old female who presents to the emergency department complaining of right upper quadrant pain worsening today. Patient states she has an elective cholecystectomy scheduled with Dr. Contreras on 06/08, and has been managing her pain with hydrocodone as needed since being initially diagnosed with gallstones. She states that over the past week she has developed symptoms of cough, chills, fever, and upper respiratory symptoms which preceded an acute exacerbation of her right upper quadrant pain today that has been unrelieved by her hydrocodone. She notes placing a lidocaine patch which has eased her pain a bit, but she notes she is having continued pain and that it is more localized to the right upper quadrant than usual. She also reports nausea and vomiting, but denies any other symptoms. She reports exposure to COVID from her daughter, who tested positive on 05/18. Associated Symptoms: Reports chills, fever(s), nausea and vomiting; Denies bloating, change in stool character, constipation, diarrhea, dysuria and hematochezia Review of Systems General: Reports: 10 or more systems reviewed and unremarkable except in HPI and below Const: Reports: fever(s) and chills; Denies: change in appetite, change in weight or diaphoresis ENMT: Denies: throat pain or hoarseness Card: Denies: chest pain, palpitations or lightheadedness Resp: Reports: non-productive cough; Denies: dyspnea or wheezing GI: Reports: abdominal pain, nausea and vomiting; Denies: diarrhea, constipation, bloating, change in stool character or hematochezia : Denies: flank pain, difficulty voiding, dysuria, urinary frequency or urinary urgency Musc: Denies: neck pain or back pain Skin/Breast: Denies: rash or new lesions Neuro: Denies: headache(s) or dizziness PFSH ED PFSH: Family History Father Cancer Mother Cancer breast/throat Social History Smoking and tobacco/nicotine status: current every day tobacco/nicotine user Alcohol intake: current Alcohol intake frequency: holidays/special occasions only Physical Exam Const: COMMON NORMALS: no acute distress, average body habitus, patient oriented x3, no limitations, healthy appearing, alert and well nourished GENERAL APPEARANCE: cooperative and comfortable ORIENTATION/CONSCIOUSNESS: Yes awake HENMT: COMMON NORMALS: normocephalic, atraumatic, hearing grossly normal bilaterally, external ears normal, Normal external nose present, Normal nasal mucous membranes and turbinates present and moist oral mucous membranes HEAD & SCALP: normocephalic and atraumatic NOSE: Normal external nose present and Normal nasal mucous membranes and turbinates present EXTERNAL EAR: Yes external ears normal THROAT: posterior oropharynx abnormal erythema Eye: COMMON NORMALS: Equal, round and reactive pupils present, EOMs intact bilaterally, conjunctivae normal and normal visual lainez by confrontation CONJUNCTIVA: Yes conjunctivae normal PUPIL: Yes Equal, round and reactive pupils present Neck/C-Spine: COMMON NORMALS: full ROM, supple, no meningeal signs and no JVD Resp: COMMON NORMALS: normal respiratory effort, No retractions, No use of accessory muscles and clear to auscultation bilaterally AUSCULTATION: clear to auscultation bilaterally, no crackles, no rales, no rhonchi and no wheezes Cardio: COMMON NORMALS: no JVD, regular rhythm, S1 normal heart sound present, S2 normal heart sound present, No gallops present (Cardio), No clicks present (Cardio), No murmurs present (Cardio), No rub (Cardio) and Peripheral pulses 2+ throughout RATE: tachycardic RHYTHM: regular rhythm HEART SOUNDS: S1 normal heart sound present and S2 normal heart sound present PERIPHERAL PULSES: Peripheral pulses 2+ throughout GI: COMMON NORMALS: Normal to inspection, nondistended, normoactive bowel sounds present, Soft to palpation, No hepatosplenomegaly present and no masses AUSCULTATION: Yes normoactive bowel sounds PALPATION: Yes Soft to palpation, Yes Tenderness to palpation present (GI) Details: RUQ, No Guarding due to palpation present (GI), No Rigid due to palpation and Yes No hepatosplenomegaly present RECTAL EXAM: deferred Extremity: COMMON NORMALS: normal to inspection and full ROM Neuro: COMMON NORMALS: patient oriented x3, moves all extremities, no focal motor deficits and no sensory deficits noted SENSORIUM/ORIENTATION: Yes alert MENINGEAL SIGNS: Yes no meningeal signs Psych: COMMON NORMALS: mental status grossly normal, cooperative and speech normal SPEECH: Yes normal speech Skin: COMMON NORMALS: no rashes or lesions noted GENERAL SKIN EXAM: no rashes or lesions noted Course Vital Signs: Vital signs: Vital Signs Temperature 100.6 F H 05/23/23 21:34 Pulse Rate 111 H 05/24/23 00:21 Respiratory Rate 158 H 05/23/23 21:34 Blood Pressure 101/66 05/24/23 00:21 Pulse Oximetry 95 05/24/23 00:21 Oxygen Delivery Me thod Room Air 05/23/23 23:12 MDM - Abdominal Pain Medical Decision Making This patient was seen and evaluated in the emergency department today for right upper quadrant pain exacerbation. Patient has elective cholecystectomy scheduled in a couple weeks, and states that her pain normally has been controlled with hydrocodone but was unrelieved today. She reports fevers, cough, and other Everose or symptoms that she was exposed to her daughter who tested positive for COVID on Friday. Her vitals significant for elevated temperature as well as tachycardia. I started her on bolus of normal saline gave her Toradol and Zofran to her IV. Upon recheck she states she felt better. Initial examination is positive for right upper quadrant tenderness on palpation. Laboratory tests showed slight elevation in liver enzymes, which I believe is due to her recent intake of Tylenol as well as COVID infection which she tested positive for today. Her labs are also minimally elevated, and I do not see a reason to rescan her gallbladder due to her upcoming elective cholecystectomy. Her white count was also normal, and total bilirubin was within normal limits. I discussed this with the patient, and told her to keep follow-up with general surgery and to return if her condition significantly worsens and she is unable to control her fevers and pain with medications already in place. She agrees with this plan. Patient discharged home. Medical Records I reviewed the patient's medical records. Lab Data I reviewed the patient's lab results. 05/23/23 23:19 05/23/23 23:19 Labs/Radiology: Laboratory Results WBC 9.25 10^3/uL (4.5-13.0) 05/23/23 23:19 Corrected WBC Cancelled 05/23/23 22:51 RBC 4.25 10^6/uL (3.85-5.65) 05/23/23 23:19 Hgb 12.80 g/dL (12.4-14.8) 05/23/23 23:19 Hct 38.3 % (36-47) 05/23/23 23:19 MCV 90.1 fl (85-98) 05/23/23 23:19 MCH 30.1 pg (27-33) 05/23/23 23:19 MCHC 33.4 g/dL (30-55) 05/23/23 23:19 RDW 12.8 % (12.1-15.1) 05/23/23 23:19 Plt Count 268 10^3/cmm (157-399) 05/23/23 23:19 MPV 8.5 fL (7.4-10.4) 05/23/23 23:19 Gran % Cancelled 05/23/23 22:51 Neut % (Auto) 80.7 % 05/23/23 23:19 Lymph % (Auto) 9.7 % 05/23/23 23:19 [place] % (Auto) 8.1 % 05/23/23 23:19 Eos % (Auto) 0.8 % 05/23/23 23:19 Baso % (Auto) 0.4 % 05/23/23 23:19 Neut # (Auto) 7.46 10^3/uL (1.8-8.0) 05/23/23 23:19 Lymph # (Auto) 0.9 10^3/uL (1.5-6.5) L 05/23/23 23:19 [place] # (Auto) 0.8 10^3/uL (0.2-0.9) 05/23/23 23:19 Eos # (Auto) 0.1 10^3/uL (0.0-0.8) 05/23/23 23:19 Baso # (Auto) 0.0 10^3/uL (0.0-0.1) 05/23/23 23:19 Absolute Gran (auto) Cancelled 05/23/23 22:51 Nucleated RBC % (auto) 0 % 05/23/23 23:19 Nucleated RBCs # 0.0 /100WBC 05/23/23 23:19 Sodium 135 mmol/L (136-145) L 05/23/23 23:19 Potassium 4.5 mmol/L (3.5-5.1) 05/23/23 23:19 Chloride 99 mmol/L (98-107) 05/23/23 23:19 Carbon Dioxide 20 mmol/L (22-29) L 05/23/23 23:19 Anion Gap 20.5 (5-19) H 05/23/23 23:19 BUN 10 mg/dL (6-20) 05/23/23 23:19 Creatinine 0.7 mg/dL (0.5-0.9) 05/23/23 23:19 GFR Calculation 106.7 mL/min (90-130) 05/23/23 23:19 Glucose 94 mg/dL (65-115) 05/23/23 23:19 Calculated Osmolality 279 mOsm/kg (285-295) L 05/23/23 23:19 Calcium 9.1 mg/dL (8.5-10.5) 05/23/23 23:19 Total Bilirubin 0.5 mg/dL (0.15-1.2) 05/23/23 23:19 AST 149 U/L (0-32) H 05/23/23 23:19 ALT 55 U/L (0-33) H 05/23/23 23:19 Alkaline Phosphatase 109 U/L (35-105) H 05/23/23 23:19 Total Protein 8.1 g/dL (6.6-8.7) 05/23/23 23:19 Albumin 4.1 g/dL (3.5-5.2) 05/23/23 23:19 Globulin 4.0 g/dL (1.3-4.6) 05/23/23 23:19 Influenza Type A Ag negative (Negative) 05/23/23 23:00 Influenza Type B Ag negative (Negative) 05/23/23 23:00 SARS-CoV-2 Ag (Rapid) positive (Negative) H 05/23/23 23:00 No radiology studies performed this visit Discharge Plan Discharge Patient Disposition: Home Clinical Impression: Symptomatic cholelithiasis, COVID-19 virus infection Condition: Stable Prescriptions: No Action cefdinir 300 mg capsule 300 mg PO BID 10 Days Qty: 20 0RF ondansetron 4 mg tablet,disintegrating 4 mg PO QID PRN (Reason: nausea and vomiting) Qty: 60 0RF Vitamin Plus Low Iron 27 mg iron- 1 mg tablet 1 tab PO DAILY hydrocodone-acetaminophen 5-325 mg tablet 1 tab PO Q6H PRN (Reason: pain) Qty: 14 0RF ondansetron 4 mg tablet,disintegrating 4 mg PO Q6H PRN (Reason: nausea and vomiting) Qty: 14 0RF Discharge Orders: Discharge ED (Routine); Ordered 05/23/23 Ordered By: Rainer Nieves Discharge Diet: Usual diet Discharge Activity: Increase activity as tolerated Patient Instructions: Gallstones (ED), COVID-19 (Coronavirus Disease 2019) (ED) Activity Restrictions/Additional Instructions: Your COVID test today was positive. Contagion precaution. Take ibuprofen as needed. Continue taking your hydrocodone. Plenty fluids. Follow-up with general surgery as planned for elective cholecystectomy. If your condition significantly worsens or you develop any new or concerning symptoms, return for reevaluation. Coding Level of Care Code ED Scale Assembly Set Up Worker for Chg Fwd Documented by User: Wale Quinn DO 05/24/23 09:47 HPI - Abdominal Pain General: Chief Complaint: Abdominal Pain Stated Complaint: Gall Stones? Pain Time Seen by Provider: 05/23/23 21:48 PFSH ED PFSH: Family History Father Cancer Mother Cancer breast/throat Social History Smoking and tobacco/nicotine status: current every day tobacco/nicotine user Alcohol intake: current Alcohol intake frequency: holidays/special occasions only Course Vital Signs: Vital signs: Vital Signs Temperature 100.6 F H 05/23/23 21:34 Pulse Rate 111 H 05/24/23 00:21 Respiratory Rate 158 H 05/23/23 21:34 Blood Pressure 101/66 05/24/23 00:21 Pulse Oximetry 95 05/24/23 00:21 Oxygen Delivery Me thod Room Air 05/23/23 23:12 MDM - Abdominal Pain Medical Decision Making This patient was seen and evaluated in the emergency department today for right upper quadrant pain exacerbation. Patient has elective cholecystectomy scheduled in a couple weeks, and states that her pain normally has been controlled with hydrocodone but was unrelieved today. She reports fevers, cough, and other Everose or symptoms that she was exposed to her daughter who tested positive for COVID on Friday. Her vitals significant for elevated temperature as well as tachycardia. I started her on bolus of normal saline gave her Toradol and Zofran to her IV. Upon recheck she states she felt better. Initial examination is positive for right upper quadrant tenderness on palpation. Laboratory tests showed slight elevation in liver enzymes, which I believe is due to her recent intake of Tylenol as well as COVID infection which she tested positive for today. Her labs are also minimally elevated, and I do not see a reason to rescan her gallbladder due to her upcoming elective cholecystectomy. Her white count was also normal, and total bilirubin was within normal limits. I discussed this with the patient, and told her to keep follow-up with general surgery and to return if her condition significantly worsens and she is unable to control her fevers and pain with medications already in place. She agrees with this plan. Patient discharged home. Chart reviewed and patient discussed with midlevel. Agree with assessment and plan. Lab Data 05/23/23 23:19 05/23/23 23:19 Labs/Radiology: Laboratory Results WBC 9.25 10^3/uL (4.5-13.0) 05/23/23 23:19 Corrected WBC Cancelled 05/23/23 22:51 RBC 4.25 10^6/uL (3.85-5.65) 05/23/23 23:19 Hgb 12.80 g/dL (12.4-14.8) 05/23/23 23:19 Hct 38.3 % (36-47) 05/23/23 23:19 MCV 90.1 fl (85-98) 05/23/23 23:19 MCH 30.1 pg (27-33) 05/23/23 23:19 MCHC 33.4 g/dL (30-55) 05/23/23 23:19 RDW 12.8 % (12.1-15.1) 05/23/23 23:19 Plt Count 268 10^3/cmm (157-399) 05/23/23 23:19 MPV 8.5 fL (7.4-10.4) 05/23/23 23:19 Gran % Cancelled 05/23/23 22:51 Neut % (Auto) 80.7 % 05/23/23 23:19 Lymph % (Auto) 9.7 % 05/23/23 23:19 [place] % (Auto) 8.1 % 05/23/23 23:19 Eos % (Auto) 0.8 % 05/23/23 23:19 Baso % (Auto) 0.4 % 05/23/23 23:19 Neut # (Auto) 7.46 10^3/uL (1.8-8.0) 05/23/23 23:19 Lymph # (Auto) 0.9 10^3/uL (1.5-6.5) L 05/23/23 23:19 [place] # (Auto) 0.8 10^3/uL (0.2-0.9) 05/23/23 23:19 Eos # (Auto) 0.1 10^3/uL (0.0-0.8) 05/23/23 23:19 Baso # (Auto) 0.0 10^3/uL (0.0-0.1) 05/23/23 23:19 Absolute Gran (auto) Cancelled 05/23/23 22:51 Nucleated RBC % (auto) 0 % 05/23/23 23:19 Nucleated RBCs # 0.0 /100WBC 05/23/23 23:19 Sodium 135 mmol/L (136-145) L 05/23/23 23:19 Potassium 4.5 mmol/L (3.5-5.1) 05/23/23 23:19 Chloride 99 mmol/L (98-107) 05/23/23 23:19 Carbon Dioxide 20 mmol/L (22-29) L 05/23/23 23:19 Anion Gap 20.5 (5-19) H 05/23/23 23:19 BUN 10 mg/dL (6-20) 05/23/23 23:19 Creatinine 0.7 mg/dL (0.5-0.9) 05/23/23 23:19 GFR Calculation 106.7 mL/min (90-130) 05/23/23 23:19 Glucose 94 mg/dL (65-115) 05/23/23 23:19 Calculated Osmolality 279 mOsm/kg (285-295) L 05/23/23 23:19 Calcium 9.1 mg/dL (8.5-10.5) 05/23/23 23:19 Total Bilirubin 0.5 mg/dL (0.15-1.2) 05/23/23 23:19 AST 149 U/L (0-32) H 05/23/23 23:19 ALT 55 U/L (0-33) H 05/23/23 23:19 Alkaline Phosphatase 109 U/L (35-105) H 05/23/23 23:19 Total Protein 8.1 g/dL (6.6-8.7) 05/23/23 23:19 Albumin 4.1 g/dL (3.5-5.2) 05/23/23 23:19 Globulin 4.0 g/dL (1.3-4.6) 05/23/23 23:19 Influenza Type A Ag negative (Negative) 05/23/23 23:00 Influenza Type B Ag negative (Negative) 05/23/23 23:00 SARS-CoV-2 Ag (Rapid) positive (Negative) H 05/23/23 23:00 Discharge Plan Discharge Patient Disposition: Home Clinical Impression: Symptomatic cholelithiasis, COVID-19 virus infection Condition: Stable Prescriptions: No Action cefdinir 300 mg capsule 300 mg PO BID 10 Days Qty: 20 0RF ondansetron 4 mg tablet,disintegrating 4 mg PO QID PRN (Reason: nausea and vomiting) Qty: 60 0RF Vitamin Plus Low Iron 27 mg iron- 1 mg tablet 1 tab PO DAILY hydrocodone-acetaminophen 5-325 mg tablet 1 tab PO Q6H PRN (Reason: pain) Qty: 14 0RF ondansetron 4 mg tablet,disintegrating 4 mg PO Q6H PRN (Reason: nausea and vomiting) Qty: 14 0RF Discharge Orders: Discharge ED (Routine); Ordered 05/23/23 Ordered By: Rainer Nieves Discharge Diet: Usual diet Discharge Activity: Increase activity as tolerated Patient Instructions: Gallstones (ED), COVID-19 (Coronavirus Disease 2019) (ED) Activity Restrictions/Additional Instructions: Your COVID test today was positive. Contagion precaution. Take ibuprofen as needed. Continue taking your hydrocodone. Plenty fluids. Follow-up with general surgery as planned for elective cholecystectomy. If your condition significantly worsens or you develop any new or concerning symptoms, return for reevaluation. Coding Level of Care Code ED Scale Assembly Set Up Worker for Gilberto Dawson
[2023-05-23] MEDS: sodium chloride 0.9% 1,000 ML 999 ML IV (22:53)
[2023-05-23] MEDS: ketorolac 60 mg/2 mL INJ IVP (22:55)
[2023-05-23] MEDS: ondansetron 2 mg/ML SDV 2 mL 4 MG IVP (22:55)
[2023-05-23 23:12] VITALS: BP 124/103; PULSE 118; O2SAT 95
[2023-05-23 23:24] LABS: Basophils % 0.4 %; Eosinophils # 0.1 10^3/uL (0.0-0.8); Eosinophils % 0.8 %; Hematocrit 38.3 % (36-47); Lymphocytes # 0.9 10^3/uL (1.5-6.5); Lymphocytes % 9.7 %; Mean Corpuscular HGB Conc 33.4 g/dL (30-55); Mean Corpuscular Hemoglobin 30.1 pg (27-33); Mean Corpuscular Volume 90.1 fl (85-98); Mean Platelet Volume 8.5 fL (7.4-10.4); Monocytes # 0.8 10^3/uL (0.2-0.9); Monocytes % 8.1 %; Neutrophils # 7.46 10^3/uL (1.8-8.0); Neutrophils % 80.7 %; Nucleated Red Blood Cells % 0 %; Platelet Count 268 10^3/cmm (157-399); Red Blood Count 4.25 10^6/uL (3.85-5.65); Red Cell Distribution Width 12.8 % (12.1-15.1); White Blood Count 9.25 10^3/uL (4.5-13.0)
[2023-05-23 23:30] LABS: Alanine Aminotransferase 55 U/L (0-33); Albumin Level 4.1 g/dL (3.5-5.2); Alkaline Phosphatase 109 U/L (35-105); Blood Urea Nitrogen 10 mg/dL (6-20); Calcium 9.1 mg/dL (8.5-10.5); Carbon Dioxide 20 mmol/L (22-29); Chloride 99 mmol/L (98-107); Glomerular Filtration Rate 106.7 mL/min (90-130); Glucose 94 mg/dL (65-115); Osmolality Calculated 279 mOsm/kg (285-295); Sodium 135 mmol/L (136-145); Total Bilirubin 0.5 mg/dL (0.15-1.2); Total Protein 8.1 g/dL (6.6-8.7)
[2023-05-23 23:31] LABS: Influenza A by IFA negative (Negative); Influenza B by IFA negative (Negative)
[2023-05-23 23:31] LABS: Anion Gap 20.5 (5-19); Aspartate Amino Transferase 149 U/L (0-32); Potassium 4.5 mmol/L (3.5-5.1)
[2023-05-23 23:50] LABS: SARS Covid-2 Antigen positive (Negative)
[2023-05-24 00:21] VITALS: BP 101/66; PULSE 111; O2SAT 95
== END 2023-05-24 00:22 | disposition home or self-care (01) ==
PROVIDERS: Emergency Provider Physician Assistant
DX: K80.80 Other cholelithiasis without obstruction (principal); U07.1 COVID-19; Z72.0 Tobacco use
CPT/HCPCS: 36415; 80053; 85025; 87426; 87804; 96374; 96375; 99284; J1885; J2405; J7030

== ENCOUNTER 2023-06-09 07:45 | Day surgery (SDC) | payer MEDICAID, SELFPAY ==
[2023-06-09] VITALS (12 sets, daily range): BP systolic 92–109; BP diastolic 61–79; PULSE 62–106; RESP 16–18; TEMP 36.1–36.4; O2SAT 95–100; BMI 41.1
[2023-06-09 08:19] LABS: OR HCG Qualitative Urine Negative (Negative)
[2023-06-09] MEDS: sodium chloride 0.9% 1,000 ML 30 ML IV (08:40)
[2023-06-09] MEDS: ondansetron 2 mg/ML SDV 2 mL 4 MG IVP (08:40)
--- NOTE | 2023-06-09 08:50 | ANES.PREANE2 ---
Pre-Anesthetic Assessment Height/Weight: Height 1.45 m Weight 86.183 kg Temp Pulse Resp BP Pulse Ox O2 Del Method O2 Flow Rate 97 F L 81 16 98/64 100 Simple Mask 8 06/09/23 12:32 06/09/23 12:37 06/09/23 12:37 06/09/23 12:37 06/09/23 12:37 06/09/23 12:37 06/09/23 12:37 Operation Date: 06/09/23 09:40 Proposed Procedures p 26968 lap benny K80.20(Not Applicable) - Rainer Contreras MD Familial anesthetic complications: None Last intake: Intake Last Liquid Date 06/05/23 Last Liquid Time 23:45 Last Solid Date 06/05/23 Last Solid Time 22:00 Social Tobacco and No alcohol Exam alert, oriented x 3, clear to auscultation bilaterally and regular rate & rhythm Airway Mallampati: Class II Dentition: chipped and other (missing molar) Pulmonary allergies Anesthetic Plan ASA status: 2 Anesthesia: General Risk of > 500 ml blood loss (7ml/kg in children): No Other Pertinent Information Covid on 05/22 -states not severe and she's back to her baseline health Medications/Allergies Home Medications Medication Instructions Recorded Confirmed Last Taken Type ondansetron 4 mg disintegrating 4 mg PO Q6H PRN nausea and 05/06/23 06/09/23 06/06/23 Rx tablet vomiting #14 tabs amoxicillin 875 mg-potassium 1 tab PO BID #10 tabs 06/09/23 Unknown Rx clavulanate 125 mg tablet fluticasone propionate 50 1 spray intranasal DAILY PRN 06/09/23 06/09/23 Unknown History mcg/actuation nasal Allergy Symptoms spray,suspension loratadine 10 mg tablet (Claritin) 10 mg PO DAILY PRN Allergy Symptoms 06/09/23 06/09/23 Unknown History meloxicam 7.5 mg tablet 7.5 mg PO DAILY #7 tabs 06/09/23 Unknown Rx oxycodone 5 mg tablet 5 mg PO TID PRN pain (scale score 06/09/23 Unknown Rx 7-10) #14 tabs Allergies Allergy/AdvReac Type Severity Reaction Status Date / Time raspberry Allergy ALGY-Anaphy Verified 06/05/23 15:11 laxis Current Medications Generic Name Dose Route Start Last Admin Trade Name Freq PRN Reason Stop Dose Admin Sodium Chloride 1,000 mls @ 30 mls/hr 06/09/23 08:00 06/09/23 11:43 Sodium Chloride 0.9% IV 06/10/23 07:59 Infused .Q24H ARAM Infusion Ondansetron HCl 4 mg 06/09/23 07:49 06/09/23 08:40 Ondansetron 2 Mg/Ml Sdv 2 Ml IVP 4 mg Q5M PRN Administration NAUSEA AND VOMITING PFSH Anesthesia Family History Father Cancer Mother Cancer breast/throat Social History Smoking and tobacco/nicotine status: current every day tobacco/nicotine user Alcohol intake: current Alcohol intake frequency: holidays/special occasions only Data Anesthesia Cardiac Studies: No Data to Display
--- NOTE | 2023-06-09 09:53 | P.HPUD_ITS ---
Surgery/Procedure H&P Update DATE OF PROCEDURE: June 09, 2023 DATE H&P PERFORMED: 06/05/23 H&P UPDATE INFORMATION: I have reviewed H&P completed within last 30 days, I have examined patient prior to procedure, No changes to prior documentation and H&P is in [facility] on date indicated PLANNED PROCEDURE: Operation Date: 06/09/23 09:40 Proposed Procedures p 00444 lap benny K80.20(Not Applicable) - Rainer Contreras MD
--- NOTE | 2023-06-09 09:53 | W.PM.OPSUD ---
Surgery/Procedure H&P Update DATE OF PROCEDURE: June 09, 2023 DATE H&P PERFORMED: 06/05/23 H&P UPDATE INFORMATION: I have reviewed H&P completed within last 30 days, I have examined patient prior to procedure, No changes to prior documentation and H&P is in [facility] EMR on date indicated PLANNED PROCEDURE: Operation Date: 06/09/23 09:40 Proposed Procedures p 61526 lap benny K80.20(Not Applicable) - Rainer Contreras MD
[2023-06-09] MEDS: ceFAZolin 2,000 MG in sodium chloride 0.9% (plus) 50 ML 100 MG IV (10:38)
[2023-06-09] MEDS: BUPivacaine 0.25% INJ 10 mL INJECTION (11:00)
[2023-06-09] MEDS: lidocaine-epi 1% 20 mL INJ INJECTION (11:00)
--- NOTE | 2023-06-09 12:41 | PM.OP ---
Operative Report Date of procedure: June 09, 2023 Pre-op diagnosis: Symptomatic cholelithiasis Post-op diagnosis: Same Post-op findings: Normal cystic duct, cystic artery noted to branch early with one of the branches returning to the liver which was preserved. Procedure done: Laparoscopic ostectomy Specimens removed/disposition: Gallbladder Surgeon: Rainer Contreras MD Computer Network Specialist: TIFFANY OR STaff Estimated blood loss: 10 Complications: none Brief History: 22-year-old female with history of symptomatic cholelithiasis who presented to my clinic for evaluation for laparoscopic cholecystectomy. After discussion of all risk benefits we decided to proceed. Procedure: Patient was brought into the OR, she was placed in a supine position. General esthesia was given. The abdomen was prepped and draped in the usual sterile fashion. Timeout was conducted. The abdomen was accessed with Optiview technique via a 5 mm left upper quadrant incision at the level of Walsh's point, pneumoperitoneum was achieved and initial laparoscopy showed no evidence of visceral injury. A 2 mm trocar was then placed in the supraumbilical position under direct visualization. Additional 5 mm trocars were placed in the epigastric right upper quadrant and right flank positions under direct visualization. The gallbladder was retracted cephalad, the infundibulum was then retracted on the inferolateral direction exposing the hepatocystic triangle. I then use electrocautery to open the peritoneum anterior to the hepatocystic triangle, this opening was carried on both sides of the gallbladder to the edges of the liver and then on the sides of the gallbladder to provide better exposure. Careful dissection of the hepatocystic triangle was done until the cystic duct and artery were able to be encircled. It was noted that the cystic artery had an early branch that appeared to be direct towards the liver therefore additional excision was made proximal to the body of the gallbladder to allow for clipping past the area of this branch. The lower third of the gallbladder was elevated from the liver bed thus obtaining critical view of safety. Cystic duct and artery were double clipped proximally and single clipped distally and transected. The gallbladder was removed from the liver bed using electrocautery. During removal a small hole was made on the posterior wall of the gallbladder with a small amount of healthy appearing bile leaking from the gallbladder. This bile was suctioned. The specimen was then retrieved through the umbilical port site in an Endo Catch bag. Subsequent evaluation of the gallbladder fossa and area of dissection showed evidence of no bile leak and no bleeding, clips appear to be in the correct position. The umbilical trocar site was closed with a Mitchell-Bandar suture passer under direct visualization. This was done with a #0 Vicryl. The right upper quadrant right flank and epigastric trocars were removed under direct visualization the left upper quadrant trocar was used to evacuate the pneumoperitoneum and subsequently removed. Local anesthesia was injected in the wounds and hemostasis was verified, the wounds were closed with #4-0 Monocryl and Dermabond was applied. At the end of the procedure all counts were correct. The patient tolerated well the procedure and was transferred to the PACU in stable condition.
[2023-06-09] MEDS: oxyCODONE 5 mg IR Tab/Cap PO (13:37)
--- NOTE | 2023-06-09 14:05 | ANE.PACU2 ---
Inpatient post-anesthesia follow up: Airway intact: Yes Vital signs: Temperature 97.3 F Pulse Rate 70 Respiratory Rate 17 Blood Pressure 96/64 Pulse Oximetry 95 Oxygen Delivery Me thod Room Air Oxygen Flow Rate 8 Fraction of Inspir ed Oxygen Hydration adequate: Yes Nausea and vomiting: No Pain level: 1 Mental status: Baseline
== END 2023-06-09 14:05 | disposition home or self-care (01) ==
PROVIDERS: Anesthesiology; PCP Family Medicine; Visit Provider Surgery
PROC: 0FT44ZZ Resection of Gallbladder, Percutaneous Endoscopic Approach (ICD-10-PCS; CPT 47562; principal; 2023-06-09 09:30)
DX: K80.10 Calculus of gallbladder with chronic cholecystitis without obstruction (principal); Z86.16 Personal history of COVID-19; F17.200 Nicotine dependence, unspecified, uncomplicated
CPT/HCPCS: 47562; 81025; 84703; 88304; J0690; J1100; J1170; J1200; J1885; J2250; J2405; J2704; J3010; J3490; J7030

== ENCOUNTER 2023-07-27 15:05 | Emergency (ER) | payer MEDICAID, SELFPAY ==
[2023-07-27 15:20] VITALS: BP 127/61; PULSE 98; RESP 17; O2SAT 98; BMI 36.3
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
[2023-07-27] MEDS: LORazepam 1 mg Tablet PO (17:25)
[2023-07-27 17:26] VITALS: BP 115/80; PULSE 89; RESP 16; O2SAT 96
[2023-07-27 17:53] VITALS: BP 115/80; PULSE 86; RESP 16; TEMP 37.2; O2SAT 95
== END 2023-07-27 18:01 | disposition home or self-care (01) ==
PROVIDERS: Emergency Provider Nurse Practitioner Family; PCP Family Medicine
DX: S29.012A Strain of muscle and tendon of back wall of thorax, initial encounter (principal); S00.83XA Contusion of other part of head, initial encounter; Z72.0 Tobacco use; V47.5XXA Car driver injured in collision with fixed or stationary object in traffic accident, initial encounter
CPT/HCPCS: 70150; 72100; 99284

== ENCOUNTER → 2024-01-20 13:25 | Outpatient (BNVA) | payer MEDICAID, SELFPAY | PROVIDERS: PCP Family Medicine; Visit Provider Physician Assistant | DX: G56.01 Carpal tunnel syndrome, right upper limb (principal); G56.21 Lesion of ulnar nerve, right upper limb | CPT/HCPCS: 73080; 73130 ==

== ENCOUNTER → 2024-04-28 14:05 | Outpatient (BNVA) | payer MEDICAID, SELFPAY | PROVIDERS: PCP Family Medicine; Visit Provider Family Medicine | DX: J02.9 Acute pharyngitis, unspecified (principal); R05.9 Cough, unspecified; J06.9 Acute upper respiratory infection, unspecified | CPT/HCPCS: 87426; 87880 ==

== ENCOUNTER → 2024-05-30 13:03 | Outpatient (BNVA) | payer MEDICAID, SELFPAY | PROVIDERS: PCP Family Medicine | DX: M79.641 Pain in right hand (principal) | CPT/HCPCS: 73130 ==

== ENCOUNTER 2024-11-22 06:30 | Outpatient (RCR) | payer MEDICAID, SELFPAY | END 2024-12-21 23:59 | disposition home or self-care (01) | LOC: APT 06:30 | PROVIDERS: PCP Family Medicine; Visit Provider Advanced Practice Midwife | DX: G89.29 Other chronic pain (principal); M54.42 Lumbago with sciatica, left side | CPT/HCPCS: 97110; 97161 ==

== ENCOUNTER 2025-01-06 14:03 | Outpatient (RCR) | payer MEDICAID, SELFPAY | END 2025-01-21 23:59 | disposition home or self-care (01) | LOC: APT 14:03 | PROVIDERS: PCP Family Medicine; Visit Provider Advanced Practice Midwife | DX: G89.29 Other chronic pain (principal); M54.42 Lumbago with sciatica, left side | CPT/HCPCS: 97110; 97530 ==

== ENCOUNTER 2025-02-09 09:02 | Outpatient (RCR) | payer MEDICAID, SELFPAY | END 2025-02-15 13:37 | disposition home or self-care (01) | LOC: APT 09:02 | PROVIDERS: PCP Family Medicine; Visit Provider Advanced Practice Midwife | DX: M54.42 Lumbago with sciatica, left side (principal); G89.29 Other chronic pain | CPT/HCPCS: 97110 ==

== ENCOUNTER → 2025-02-22 16:54 | Outpatient (BNVA) | payer MEDICAID, SELFPAY | PROVIDERS: PCP Family Medicine | DX: R30.0 Dysuria (principal) | CPT/HCPCS: 87086 ==